=== PATIENT | female | born 1970 | race Caucasian/White ===

== ENCOUNTER 2018-04-01 20:52 | Emergency (ER) | payer SELFPAY ==
--- NOTE | 2018-04-01 22:27 | RAD ---
LEFT SHOULDER THREE VIEW 04/01/18 HISTORY: Pain. COMPARISON: None. FINDINGS: No fracture. No malalignment. The visualized ribs are unremarkable. Acromioclavicular alignment is no rmal. IMPRESSION: No acute abnormality. POS: [facility]
[2018-04-01] MEDS ORDERED: traMADol HCl 50 MG TAB ONE ×2 (22:43→22:46)
== END 2018-04-01 22:55 | disposition home or self-care (01) ==
LOC: ERS 20:52
DX: M25.512 Pain in left shoulder (principal); E11.9 Type 2 diabetes mellitus without complications

== ENCOUNTER 2018-05-13 13:06 | Emergency (ER) | payer SELFPAY ==
--- NOTE | 2018-05-13 14:03 | RAD ---
FRadiograph chest 2 views: 05/13/2018 HISTORY: 48-year-old female with cough and fever. COMPARISON: 05/16/2014 FINDINGS: Subtle, small patchy region of slightly increased attenuation at right medial base, probably not an a cute infiltrate, but appears to be new since the prior study. This could be a confluence of overlappi ng shadows. Rest of the lungs appear to be clear. Transverse diameter of the cardiac shadow increased , but not the AP diameter. No pleural effusion or pneumothorax. IMPRESSION: No convincing evidence of pneumonia. Follow-up recommended.
== END 2018-05-13 14:25 | disposition home or self-care (01) ==
LOC: ERS 13:06
DX: J20.9 Acute bronchitis, unspecified (principal); E11.9 Type 2 diabetes mellitus without complications; Z87.891 Personal history of nicotine dependence
CPT/HCPCS: 71046